=== PATIENT | male | born 1990 | race Caucasian/White ===

== ENCOUNTER 2017-05-19 08:17 | Outpatient (CLI) | payer BC ==
[~2017-05-19 08:17] MED LIST: Gadobenate Dimeglumine 529 MG/1 ML (20ML VIAL) ONE
--- NOTE | 2017-05-19 09:42 | MRI ---
BRAIN MRI WITH AND WITHOUT CONTRAST: INDICATION: Seizures. COMPARISON: No prior comparison. FINDINGS: The ventricular system is normal in size. There is a nidus of cortically based and subcortical signa l abnormality of the right occipital lobe, measuring 1.3 cm without associated enhancement. No intra cranial hemorrhagic susceptibility. The skull base flow voids are patent. No significant abnormalit y of the paranasal sinuses. IMPRESSION: 1. Nonenhancing signal abnormality centered at the cortex and subcortical white matter of the right occipital lobe, nonspecific. Differential considerations include a low-grade neoplasm, or an inflamm atory focus. This could provide source for seizure nidus and should be correlated with EEG results. 2. Short-term imaging followup is also necessary. Recommend a followup exam in 3-4 months for reass essment. CODE T POS: CHRISTINA
== END 2017-05-19 08:18 | disposition home or self-care (01) ==
LOC: MRI 08:17
PROVIDERS: ATTEND Psychiatry & Neurology Neurology
DX: G40.209 Localization-related (focal) (partial) symptomatic epilepsy and epileptic syndromes with complex partial seizures, not intractable, without status epilepticus (principal); R93.0 Abnormal findings on diagnostic imaging of skull and head, not elsewhere classified
CPT/HCPCS: 70553; A9579